=== PATIENT | female | born 1945 | race Caucasian/White ===

== ENCOUNTER → 2021-06-07 | Outpatient (CLI) | payer MEDICARE ==
[2021-06-07 15:29] LABS: African American GFR (CKD) 98.2 (60.0-200.0); Albumin 3.8 g/dL (3.8-4.9); Albumin/Globulin Ratio 1.52 (1.60-3.17); Anion Gap 10.7 mmol/L (10.00-18.00); Blood Urea Nitrogen 16.1 mg/dL (9.0-27.0); Carbon Dioxide 24.3 mmol/L (20.0-27.5); Globulin 2.5 g/dL (1.6-3.3); Non-African American GFR(CKD) 84.8 (60.0-200.0); Potassium 3.8 mmol/L (3.5-5.5); Total Bilirubin 0.6 mg/dL (0.30-1.20); Total Protein 6.3 g/dL (6.2-8.2)
== END | disposition home or self-care (01) ==
LOC: LABWHC1 10:03
PROVIDERS: ATTEND Hospitalist
DX: D64.9 Anemia, unspecified (principal)
CPT/HCPCS: 36415; 80053

== ENCOUNTER → 2021-07-15 | Outpatient (CLI) | payer MEDICARE ==
--- NOTE | 2021-07-15 22:04 | CT ---
EXAMINATION TYPE: CT chest wo con DATE OF EXAM: 07/15/2021 COMPARISON: Chest x-ray July 01, 2021 and older x-rays through May 10, 2021 HISTORY: SOB, pulmonary fibrosis. History of covid infection in May. CT DLP: 471.2 mGycm. Automated Exposure Control for Dose Reduction was Utilized. TECHNIQUE: CT scan of the thorax is performed without IV contrast. High-resolution protocol with 1 m m sequences obtained in 10 mm intervals in supine and prone technique. FINDINGS: LUNGS: Peripheral reticulation and linear increased markings with multifocal areas of groundglass are present greatest in the lower lungs. Mild cylindrical bronchiectasis in the lower lungs is seen. No pleural effusion or pneumothorax noted. Low lung volumes are present. MEDIASTINUM: Lack of IV contrast and technique are noted to limit evaluation for mediastinal and yanet cially hilar adenopathy. There are no definitive greater than 1 cm mediastinal lymph nodes. No card iomegaly or pericardial effusion is seen. OTHER: S-shaped scoliosis of the spine is seen. IMPRESSION: Low lung volumes with fairly moderate diffuse bilateral parenchymal opacities and scarrin g greatest in the lower lungs and bases. Areas of acute infiltrate and/or edema not entirely excluded . Comparison with old outside x-rays before May 2021 would be beneficial.
== END | disposition home or self-care (01) ==
LOC: RADCTMAIN 17:11
PROVIDERS: ATTEND Internal Medicine Critical Care Medicine
DX: J98.4 Other disorders of lung (principal); Z86.16 Personal history of COVID-19
CPT/HCPCS: 71250